=== PATIENT | female | born 1980 | race Two or more races ===

== ENCOUNTER 2020-05-12 08:30 | Inpatient (IN) | payer OTHER ==
[~2020-05-12] VITALS: Ht 160 cm; Wt 113.4 kg
[2020-05-20] MEDS ORDERED: ACETAMINOPHEN500 M2 PO (08:07)
[2020-05-20] MEDS ORDERED: IBU400 MG PO (08:07)
[2020-05-20] MEDS ORDERED: SURFAK240 M1 PO (08:08)
[2020-05-20] MEDS ORDERED: SIMETHICONE125 M1 PO (08:09)
[2020-05-20] MEDS ORDERED: PERCOCET 5-3251 EACH PO (08:12)
== END 2020-05-20 14:00 | disposition home or self-care (01) | DRG 743 ==
LOC: OB/GYN 05-19 05:51 → O/R 05-19 05:51 → OB/GYN 05-19 07:00
PROVIDERS: ADMIT Obstetrics & Gynecology; ATTEND Obstetrics & Gynecology
PROC: 0UB74ZZ Excision of Bilateral Fallopian Tubes, Percutaneous Endoscopic Approach (ICD-10-PCS; 2020-05-19)
PROC: 0UT94ZZ Resection of Uterus, Percutaneous Endoscopic Approach (ICD-10-PCS; principal; 2020-05-19 07:00)
DX: N80.0 Endometriosis of uterus (principal); N83.8 Other noninflammatory disorders of ovary, fallopian tube and broad ligament; N92.1 Excessive and frequent menstruation with irregular cycle; N87.9 Dysplasia of cervix uteri, unspecified